=== PATIENT | male | born 1980 | race African-American/Black ===

== ENCOUNTER 2017-06-12 19:35 | Observation (INO) ==
[2017-06-12] MEDS ORDERED: methylPREDNISolone SOD SUC 125 MG/2 ML VIAL IV STA (20:50)
[2017-06-12] MEDS ORDERED: hydrALAZINE 20 MG/1 ML VIAL IV STA ×2 (20:50→23:55)
[2017-06-12] MEDS ORDERED: ASPIRIN 325 MG TABLET PO STA (20:50)
[2017-06-12] MEDS ORDERED: cefTRIAXone 1,000 MG in SODIUM CHLORIDE 0.9% 100 ML IV STA (20:50)
[2017-06-12] MEDS ORDERED: MORPHINE 2 MG/1 ML SYRINGE IV STA (20:50)
[2017-06-12] MEDS ORDERED: ONDANSETRON 4 MG/2 ML VIAL IV STA (20:50)
[2017-06-12] MEDS ORDERED: NITROGLYCERIN 2% OINT 1 INCH/GM PACK TOP STA (20:50)
[2017-06-12] MEDS ORDERED: FUROSEMIDE 100 MG/10 ML VIAL IV STA (20:50)
[2017-06-12] MEDS ORDERED: ALBUTEROL 2.5 MG/3 ML NEB RESP TX SCH (21:00)
[2017-06-12 21:05] LABS: Basophils % 0.2 % (0.0-0.8); Eosinophils # 0.1 10*3/uL (0.0-0.87); Eosinophils % 1.2 % (0.00-10.9); Hematocrit 42.7 VOL% (42.0-52.0); Hemoglobin 14.2 GM/DL (14.0-18.0); Immature Granulocytes % 0.3 %; Immature Granulocytes Absolute 0.03 #; Lymphocytes # 2.2 10*3/uL (1.4-4.0); Lymphocytes % 19.3 % (21.2-54.2); Mean Corpuscular HGB Conc 33.3 GM/DL (32-36); Mean Corpuscular Hemoglobin 26 PG (27-34); Mean Corpuscular Volume 77.5 FL (87-102); Mean Platelet Volume 10.2 FL (9.6-12.0); Monocytes % 8.9 % (1.7-12.7); Neutrophils % 70.1 % (38.7-73.9); Platelet Count 202 T/CUMM (130-400); Red Blood Count 5.51 MC/CUMM (3.8-5.5); Red Cell Distribution Width 14.9 % (9.3-17.3); White Blood Count 11.4 T/CUMM (4-12)
--- NOTE | 2017-06-12 21:13 | XRay Report ---
XR chest 1V portable Indication: Shortness of breath. Chest one view: Comparison 11/05/2014. No infiltrates are shown. There is mild interstitial prominence of the lungs accentuated by morbid obesity. Moderate cardiomegaly is present as well. Slight prominence of the hilar regions noted. Impression: Evidence of mild CHF with moderate cardiomegaly, interstitial prominence of the lungs and hilar prominence bilaterally. No focal pneumonia. PROCEDURE INTERPRETED AT [facility] DEPARTMENT OF RADIOLOGY Final Report Signed by: Weston Smith M.D.
[2017-06-12 21:25] LABS: D-Dimer <= 0.5 MG/L FEU; INR 1.1; PT Patient Result 11.4 SECS
[2017-06-12] MEDS ORDERED: NITROGLYCERIN 2% OINT 1 INCH/GM PACK TOP ONE (21:30)
[2017-06-12] MEDS ORDERED: cefTRIAXone 1,000 MG VIAL ONE (21:30)
[2017-06-12] MEDS ORDERED: hydrALAZINE 20 MG/1 ML VIAL ONE (21:30)
[2017-06-12] MEDS ORDERED: FUROSEMIDE 40 MG/4 ML VIAL ONE (21:30)
[2017-06-12] MEDS ORDERED: SODIUM CHLORIDE 0.9% 100 ML IV ONE (21:31)
[2017-06-12] MEDS ORDERED: methylPREDNISolone SOD SUC 125 MG/2 ML VIAL ONE (21:31)
[2017-06-12] MEDS ORDERED: ASPIRIN 325 MG TABLET ONE (21:31)
[2017-06-12] MEDS ORDERED: FUROSEMIDE 20 MG/2 ML VIAL ONE (21:31)
[2017-06-12] MEDS ORDERED: MORPHINE 2 MG/1 ML SYRINGE ONE (21:31)
[2017-06-12] MEDS ORDERED: ONDANSETRON 4 MG/2 ML VIAL ONE (21:31)
[2017-06-12 21:33] LABS: Albumin 3.4 G/DL (3.4-5.0); Bilirubin,Total 0.9 MG/DL (0.2-1.0); Calcium 8.9 MG/DL (8.5-10.1); Magnesium 2.1 MG/DL (1.8-2.4); Osmolality,Calculated 278.7 MOS/KG (273-304); Potassium 3.2 MMOL/L (3.5-5.1); Total Protein 7.9 G/DL (6.4-8.3); Troponin I Only 0.028 NG/ML (0.00-0.045)
[2017-06-12] MEDS ORDERED: POTASSIUM CHLORIDE 20 MEQ TABLET PO STA (22:10)
[2017-06-12] MEDS ORDERED: POTASSIUM CHLORIDE 20 MEQ TABLET PO ONE (22:23)
[2017-06-12] MEDS ORDERED: niCARdipine 25 MG/10 ML VIAL IV ONE (22:32)
[2017-06-12 22:36] LABS: Apearance,Urine CLEAR (Clear); Bilirubin,Urine Negative (Negative); Blood, Urine Negative (Negative); Glucose,Urine (UA) Negative (Negative); Ketones,Urine Negative (Negative); Nitrite,Urine Negative (Negative); Protein,Urine 100 MG/DL; RBC,Urine 1 /HPF (0-4); Squamous Epithelial Cell,Urine Occasional /HPF (0-10); Urine Color Yellow (Yellow); Urine Specific Gravity 1.012 (1.001-1.035); WBC,Urine 1 /HPF (0-6)
[2017-06-12 22:43] LABS: Barbiturates Screen,Urine Negative (Negative); Benzodiazepines Screen,Urine Negative (Negative); Cannabinoid Screen,Urine Negative (Negative); Opiate Screen,Urine Positive (Negative); Phencyclidine Screen,Urine Negative (Negative)
[2017-06-12] MEDS ORDERED: niCARdipine INJ 25 MG in SODIUM CHLORIDE 0.9% 240 ML IV SCH (23:00)
--- NOTE | 2017-06-12 23:07 | Emergency Department Note ---
IRuthann Emily, am scribing for, and in the presence of, Wilian Berry MD 20: 33. Jamal Ayala Charles R, MD, personally performed the services described in this documentation, ascribed by Anna Beavers in my presence, and it is both accurate and complete . Arrival - Arrival Chief Complaint: Upper Respiratory Stated Complaint: Body aches, headache ED Nursing Triage Note: Pt to triage with complaints of congestion body aches and headache. States that symptoms started Friday. States that he thinks he may have had fever but did not check. PT states that he has a productive cough. Denies relief with otc medications. States that he was seen at Dr. Akins and given medication and it is not helping. b/p left arm 234/143 right arm 223/141 Mode of Arrival: Ambulatory Limitations: No Limitations Source: Patient Time Seen by Provider: 06/12/17 20:20 - History of Present Illness HPI Narrative: Pt is a 37 y/o male who came to ED with c/o congestion, body aches, and headache that started Friday. Pt has associated sxs of subjective fever, productive cough green and white frothy in color, and elevated BP, but denies relief with OTC medications. Pt reports he was seen at Dr. Ribera's and given medication that it is not helping. Pt's BP left arm 234/143, right arm 223/ 141 in ED. He admits to taking his second dose today just before coming into ED. Pt denies smoking. PMHx of being treated for CHF in the past. Onset (ago): day(s) Consistency: constant Severity: moderate Severity scale (1-10): 5 Quality: aching Allergies/Adverse Reactions: Allergies Allergy/AdvReac Type Severity Reaction Status Date / Time No Known Allergies Allergy Verified 06/12/17 19:49 Review of System - Review of System 12 point system: reviewed and no additional remarkable complaints except as stated - Review of System Constitutional: Present: fever (subjective), weakness (body aches) Head/Ears/Nose/Throat: Present: nasal drainage (congestion) Respiratory: Present: cough (productive - white frothy and green). Absent: respiratory distress, wheezing Cardiovascular: Absent: chest pain, syncope Gastrointestinal: Absent: abdominal pain, nausea, vomiting Genitourinary male: Absent: hematuria Musculoskeletal: Absent: arm pain, back pain, leg pain, neck pain Skin: Absent: rash Neurological: Present: headache. Absent: confusion, abnormal gait Medical,Surgical,& Family Hx - Medical History Cardio: History of: CHF, Hypertension - Surgical History Surgical History: noncontributory - Family History Family History: noncontributory - Social History Smoking Status: Never smoker Frequency of Alcohol Use: None Type of Drug Use: None Marital Status: Lives With:: Spouse Functional capacity: independent ambulation Exam Vital Signs: Vital Signs Temperature 99.6 F 06/12/17 20:17 Pulse Rate 113 H 06/12/17 21:24 Respiratory Rate 22 06/12/17 21:24 Blood Pressure 234/143 06/12/17 20:17 O2 Sat by Pulse Oximetry 98 06/12/17 21:24 - General General appearance: alert, in no apparent distress, obese - Head Head exam: Present: atraumatic, normocephalic - Eye Eye exam: Present: PERRL, EOMI - ENT ENT exam: Present: mucous membranes moist. Absent: normal oropharynx (erythema throat), mucous membranes dry - Neck Neck exam: Present: full ROM, lymphadenopathy (painful and knotty) - Chest Chest inspection: Present: symmetric chest wall rise - Respiratory Respiratory exam: Present: rales, rhonchi. Absent: accessory muscle use - Cardiovascular Cardiovascular exam: Present: tachycardia, normal heart sounds - Extremities Exam Extremities exam: Present: full ROM, pedal edema (+1). Absent: tenderness - Neurological Exam Neurological exam: Present: alert, oriented X3, CN II-XII intact. Absent: motor sensory deficit - Psychiatric Psychiatric exam: Present: normal affect, normal mood - Skin Skin exam: Present: warm, diaphoresis (clammy). Absent: dry Course - Consultations Consultation #1: Hospitalist will admit patient Time: 23:06 Results - Labs CBC & BMP: 06/12/17 20:38 06/12/17 20:38 Lab Results: I have reviewed the patients labs Labs: Laboratory Tests 06/12/17 06/12/17 06/12/17 20:38 20:38 20:38 WBC 11.4 RBC 5.51 H Hgb 14.2 Hct 42.7 MCV 77.5 L MCH 26 L Plt Count 202 Lymph % (Auto) 19.3 L Neut # (Auto) 8.0 H [place] # (Auto) 1.0 H D-Dimer, Quantitative <= 0.5 Sodium 138 Potassium 3.2 L Chloride 101 Carbon Dioxide 27 Creatinine 1.60 H GFR Calculation 102 Glucose 163 H Troponin I 0.028 Globulin 4.5 H Albumin/Globulin Ratio 0.7 L Laboratory Tests 06/12/17 20:38 B-Natriuretic Peptide 86 Microbiology 06/12/17 21:52 Throat Group A Streptococcus Rapid Screen - Final Negative for Grp A Strep Ag 06/12/17 21:52 Nasal Aspirate Influenza Types A,B Antigen (MARTHA) - Final Negative for Influenza A Ag Negative for Influenza B Ag Laboratory Tests 06/12/17 06/12/17 22:16 22:16 Urine Color Yellow Urine Appearance Clear Urine pH 6.0 Ur Specific [place] 1.012 Urine Protein 100 Urine Blood Negative Urine Nitrate Negative Urine Urobilinogen 2.0 H Urine RBC 1 Urine WBC 1 Ur Squamous Epith Cells Occasional Urine Opiates Screen Positive H - Diagnostic Findings Procedure: Chest x-ray: report reviewed by me (Evidence of mild CHF with moderate cardiomegaly, interstitial prominence of the lungs and hilar prominence bilaterally. No focal PNA.) Critical Care Time Critical Care Time: Yes Total Critical Care Time: 60 Disposition Clinical Impression: Upper respiratory infection, Bronchitis, Viral infection, Acute dyspnea, Morbid obesity, Hypertensive urgency, Congestive heart failure Case discussed with: patient, patient's family Disposition: Still a Patient Condition: Guarded Time of Disposition: 23:06
[2017-06-12] MEDS ORDERED: ONDANSETRON 4 MG/2 ML VIAL IV PRN (23:30)
[2017-06-12] MEDS ORDERED: ACETAMINOPHEN 325 MG TABLET PO PRN (23:30)
[2017-06-12] MEDS ORDERED: hydrALAZINE 20 MG/1 ML VIAL IV PRN (23:52)
--- NOTE | 2017-06-13 00:14 | Hospitalist History & Physical ---
Assessment and Plan - Time spent with patient Time spent with patient: Greater than 30 minutes (1) Hypertensive urgency Status: Acute Assessment and plan: Admit to hospitalist services. Admit to monitored bed. Cardiac diet. Continue home dose of valsartan/hydrochlorothiazide 320-25 mg daily. Continue home dose of Coreg 25 mg daily Continue home dose hydralazine 50 mg twice daily Continue home dose Lasix 80 mg twice daily Hydralazine 10 mg IV as needed for systolic blood pressure greater than 180 or diastolic blood pressure greater than 100. Current Visit: Yes (2) Upper respiratory infection Status: Acute Assessment and plan: Rocephin 1000 mg IV every 24 hours. Current Visit: Yes (3) Hypokalemia Status: Acute Assessment and plan: Likely due to chronic Lasix use. Potassium chloride 20 mEq p.o. daily. Recheck BMP in a.m. Current Visit: Yes (4) Congestive heart failure Status: Chronic Assessment and plan: Continue home medications for high blood pressure as above. Continue home dose of Lasix as above. Recheck BNP in a.m. Daily weight. Strict intake and output. Current Visit: Yes (5) DVT prophylaxis Status: Acute Assessment and plan: No contraindications to pharmacological treatment. Lovenox 40 mg SQ daily. Current Visit: Yes History of Present Illness Chief complaint: Generalized body aches History of present illness: Mr. Bruce is a 37 year old male with a history of HTN and CHF who presented to the ED tonight with complaints of generalized body aches, fever, chills, sore throat, headache and productive cough with green sputum x 5 days. He denies nausea, vomiting, constipation and diarrhea. He states that he went to his doctor yesterday and was prescribed flonase and claritin, but he has had no improvement in symptoms. On presentation to the ED, Mr. Bruce's BP was 234/143. He denies associated symptoms of chest pain, shortness of breath, dizziness or vision changes, and his BNP was 86. 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 Hospitalist services were consulted for further evaluation and treatment, and patient will be admitted to a monitored bed. Allergies Allergy/AdvReac Type Severity Reaction Status Date / Time No Known Allergies Allergy Verified 06/12/17 19:49 Medical,Surgical,& Family Hx - Medical History Cardio: History of: CHF, Hypertension, Valvular Heart Disease No history of: Cardiac Dysrhythmia Neurology: No history of: Cerebrovascular Accident, Seizures HEENT: No history of: Ear Problem, Eye Problem Endocrine: No history of: Diabetes Mellitus (IDDM), Diabetes Mellitus (NIDDM), Thyroid Disorder Rheumatology: No history of;: Rheumatoid Arthritis Respiratory: No history of: Asthma, COPD Renal: No history of: Renal Failure, Renal Problems Genitourinary: No history of: Kidney Stones, Recurring Urinary Tract Infections, Problems Gastrointestinal: No history of: GI Problems Musculoskeletal: No history of: Back/Neck Problems Hematology: No history of: Bleeding Problems, Clotting Problems, Sickle Cell Disease Other: No history of: Cancer - Surgical History Surgical History: noncontributory (Reviewed surgical history with patient, and he has no surgical history.) - Family History Family History: Reports;: Family Hypertension (mother and maternal grandfather) - Social History Smoking Status: Former smoker Have you smoked in the last 12 months: No Frequency of Alcohol Use: None Type of Drug Use: None Marital Status: Single Lives With:: Parent Functional capacity: independent ambulation - Constitutional Constitutional: Present: chills, fever(s), headache(s), malaise - EENT Eyes: Absent: blurry vision, diplopia, loss of vision Ears: Present: ear pain. Absent: decreased hearing, ear discharge Nose, mouth and throat: Present: headache(s), nasal congestion, sore throat - Cardiovascular Cardiovascular: Absent: chest pain at rest, chest pain with activity, dyspnea, edema, orthopnea, palpitations - Respiratory Respiratory: Present: cough. Absent: dyspnea, wheezing - Gastrointestinal Gastrointestinal: Absent: abdominal pain, constipation, diarrhea, nausea, vomiting - Genitourinary Genitourinary: Absent: dysuria, flank pain, urinary frequency - Musculoskeletal Musculoskeletal: Present: myalgias. Absent: arthralgias, back pain, joint swelling, muscle weakness - Neurological Neurological: Absent: dizziness, numbness, paresthesias, syncope - Psychiatric Psychiatric: Absent: anxiety, depression - Endocrine Endocrine: Absent: cold intolerance, polydipsia, polyphagia, polyuria - Hematologic/Lymphatic Hematologic/Lymphatic: Absent: easy bleeding, easy bruising Exam - Constitutional Vitals: Period Temp Pulse Resp BP Sys/Bonds Pulse Ox Last 24 Hr 99.6 F-99.6 F 113-113 18-22 234-234/143-143 95-98 Exam: Constitutional System: Low-grade temp and diaphoretic. Awake alert and oriented 3. No distress. No tremulousness. Head: Normocephalic, atraumatic. Ears, Nose and Throat System: Redness of right auditory canal with normal tympanic membrane; light reflex visible. No epistaxis or discharge. Throat red with tonsillar hypertrophy noted. No exudate noted. Eyes System: Pupils equal, round, and reactive. Extraocular muscles intact. Neck: Supple, without adenopathy, No jugular venous distention. No thyromegaly, neck mass, or prior surgery apparent. Respiratory System: Chest clear to auscultation. No cough noted during exam. Cardiovascular System: Heart with tachycardic rate and regular rhythm. Systolic murmur present. GI System: Abdomen soft, nontender. Normo active bowel sounds present. Musculoskeletal System: limbs with no pedal edema. Full distal pulses. Normal capillary refill. Neurological System: No discernable sensory deficit. No aphasia Psychiatric System: Conversation is rational Results - Labs CBC & BMP: 06/12/17 20:38 06/12/17 20:38 Lab Results: I have reviewed the past 24 hour labs
[2017-06-13 01:04] LABS: Band Neutrophils 3 % (0-10); Eosinophils 2 % (0-10); Lymphocytes 24 % (20-55); Segmented Neutrophils 67 % (50-85)
[2017-06-13 01:12] LABS: Platelet Estimate Normal; Total Cells Counted 100
--- NOTE | 2017-06-13 02:20 | EKG Report ---
Stationary ECG Study [facility] ER Test Date: 06/12/2017 9:51:46 PM Pat Name: SHERIF PELAYO Department: Room: 270 Gender: M [employer]: : 1980 Requested by: Wilian Arnold Order Number: [id number] Reading MD: LYDIA MARINELLI Intervals [place]ylie Rate: 108 P: 78 NE: 162 QRS: -53 QRSD: 114 T: 84 QT: 363 QTc: 426 Interpretive Statements SINUS TACHYCARDIA PATTERN CONSISTENT WITH PULMONARY DISEASE LEFT ANTERIOR FASCICULAR BLOCK NONSPECIFIC T-WAVE ABNORMALITY BIATRIAL ABNORMALITY Electronically Signed On 06-13-17 17:11:59 CDT by LYDIA MARINELLI [email or web address]
[2017-06-13] MEDS ORDERED: hydrALAZINE 20 MG/1 ML VIAL IV PRN (04:29)
[2017-06-13 05:31] LABS: Osmolality,Calculated 282.7 MOS/KG (273-304); Potassium 3.7 MMOL/L (3.5-5.1)
--- NOTE | 2017-06-13 07:06 | CT Report ---
History is headache and hypertensive urgency Lateral ventricles are normal in size Mild patchy white matter low densities present without acute intracranial hemorrhage or mass effects seen No acute cortical stroke identified Mild mucosal thickening in the paranasal sinuses noted Impression: Mild patchy nonspecific white matter low densities can't be associated with sequelae of microvascular disease, hypertension, vasculitides or demyelinating disorder. Clinical correlation requested The CT exam was performed using one or more of the following dose reduction techniques: Automated exposure control, adjustment of the mA and/or kV according to patient size, or use of iterative reconstruction technique. PROCEDURE INTERPRETED AT [facility] DEPARTMENT OF RADIOLOGY Final Report Signed by: Dr. Joya Garcia
[2017-06-13] MEDS: ENOXAPARIN 40 MG/0.4 ML SYRINGE SUBCUT SCH ×2 (08:39→08:41)
[2017-06-13] MEDS: POTASSIUM CHLORIDE 20 MEQ TABLET PO SCH (08:42)
[2017-06-13] MEDS: FUROSEMIDE 80 MG TABLET PO SCH ×2 (08:42→16:58)
[2017-06-13] MEDS: VALSARTAN/HCTZ 160-12.5 MG TABLET PO SCH (08:42)
[2017-06-13] MEDS: CARVEDILOL 25 MG TABLET PO SCH ×2 (08:43→20:23)
--- NOTE | 2017-06-13 13:55 | Hospitalist Progress Note ---
Assessment and Plan (1) Hypertensive urgency Status: Acute Assessment and plan: Pt's blood pressure on admission 234/143. Pt's blood pressure has improved. But he is still elevated. Will increase dosage of hydralazine and monitor. Current Visit: Yes (2) Hypokalemia Status: Resolved Assessment and plan: K 3.7 today. Will continue to monitor. Current Visit: Yes (3) Morbid obesity Status: Acute Current Visit: Yes Hospitalist: Subjective Interval history: Pt. seen and examined with family present at the bedside. No issues noted overnight. No apparent distress noted. Pt. reports congestion and aches have resolved. We are going to continue current plan of care for patient. Pt. continues to be hypertensive. Increase hydralazine and monitor. Exam - Constitutional Vitals: Period Temp Pulse Resp BP Sys/Bonds Pulse Ox Last 24 Hr 96.9 F-99.6 F 96-113 16-22 137-234/72-143 95-98 General appearance: no acute distress, morbidly obese - Head Head exam: Present: normal inspection, normocephalic - Eye Eye exam: Present: EOMI. Absent: scleral icterus Pupils: Present: CARMEN - Respiratory Respiratory exam: Present: clear to auscultation bilaterally. Absent: wheezes - Cardiovascular Cardiovascular exam: Present: regular rate and rhythm - GI/Abdominal GI/Abdominal exam: Present: normal bowel sounds, soft. Absent: tenderness - Extremities Exam Extremities exam: Present: normal capillary refill, full ROM. Absent: edema - Neurological Exam Neurological exam: Present: alert, oriented X3 - Psychiatric Psychiatric exam: Present: normal affect, normal mood - Skin Skin exam: Present: normal color, warm, dry Results - Labs CBC & BMP: 06/12/17 20:38 06/13/17 04:09 Lab Results: I have reviewed the past 24 hour labs
[2017-06-13] MEDS: amLODIPine 10 MG TABLET PO SCH (15:33)
[2017-06-13] MEDS ORDERED: cefTRIAXone 1,000 MG in SODIUM CHLORIDE 0.9% 100 ML IV SCH (21:00)
[2017-06-14 05:08] LABS: Calcium 9.3 MG/DL (8.5-10.1); Magnesium 2.6 MG/DL (1.8-2.4); Osmolality,Calculated 286.5 MOS/KG (273-304)
[2017-06-14] MEDS: ENOXAPARIN 40 MG/0.4 ML SYRINGE SUBCUT SCH (08:04)
[2017-06-14] MEDS: CARVEDILOL 25 MG TABLET PO SCH (08:05)
[2017-06-14] MEDS: FUROSEMIDE 80 MG TABLET PO SCH (08:05)
[2017-06-14] MEDS: POTASSIUM CHLORIDE 20 MEQ TABLET PO SCH (08:05)
[2017-06-14] MEDS: VALSARTAN/HCTZ 160-12.5 MG TABLET PO SCH (08:06)
[2017-06-14] MEDS: amLODIPine 10 MG TABLET PO SCH (08:06)
--- NOTE | 2017-06-14 08:25 | Discharge Summary ---
Hospital Course - Hospital Course Hospital Course: This is a 37 year old gentleman with moderate to severe essential hypertension. The patient arrived to the hospital with hypertensive emergency and was treated with oral medications and IV antihypertensive medicine on the telemetry meier. Blood pressure is reasonably controlled and the patient is now ready for discharge home to continue follow-up of blood pressure and titration of medications as an outpatient. The patient's initial symptoms were shortness of breath and chest pressure which have now resolved completely. On the date of discharge, chest is clear, abdomen soft and heart has regular rate and rhythm. Patient medications were reconciled upon admission, and again at the time of discharge. The patient was screened for tobacco use and found to be a occasional smoker. The patient was given 4 minutes of tobacco avoidance education. The patient's medical decsion maker is themself, and when asked, they asked to be Full code. Discharge Time was 32 minutes, including final examination, evaluation and planning, education, reconciliation of medications, writing prescriptions, coordinating care with manager of case, and preparing discharge documentation. - Time spent with patient Time with patient DS: Greater than 30 minutes Diagnosis - Discharge Diagnosis (1) Hypertensive urgency Status: Resolved (2) Essential hypertension Status: Chronic Discharge Plan - Discharge Data Disposition: Disch To Home/Self Care Condition at Discharge: Stable Discharge Diet: regular diet Activity: resume usual activities as tolerated - Discharge Medications New amLODIPine [Norvasc] 10 mg PO DAILY #60 tablet Continue Loratadine Tab [Claritin Tab] 10 mg PO DAILY Fluticasone Propionate [Fluticasone 50 mcg Nasal [place]] 50 mcg BOTH NARES DAILY Carvedilol 25 mg PO BID #100 hydrALAZINE TAB [Apresoline Tab] 50 mg PO BID #100 Valsartan/Hydrochlorothiazide [Diovan Hct 320-25 mg Tablet] 320 mg PO DAILY # 60 Furosemide Tab [Lasix Tab] 80 mg PO BID #100 - Follow Up or Referral Follow Up: Your,PCP [Other] - Forms/Instructions Exam - Constitutional Vitals: Period Temp Pulse Resp BP Sys/Bonds Pulse Ox Last 24 Hr 97.4 F-98.9 F 78-110 20-20 134-201/65-117 92-98 Discharge Results Procedures and tests throughout hospitalization: Pending Orders 06/12/17 21:52 Quick Strep Panel Stat 06/12/17 22:00 Blood Culture Stat Labs on day of discharge: Labs from last 24 hours 06/14/17 03:01 Sodium 139 Potassium 4.0 Chloride 102 Carbon Dioxide 28 Anion Gap 13.0 BUN 32 H D Creatinine 1.60 H GFR Calculation 107 BUN/Creatinine Ratio 20.00 Glucose 160 H Calculated Osmolality 286.5 Calcium 9.3 Magnesium 2.6 H Preliminary micro results at discharge 06/12/17 22:00 Blood Culture - Preliminary Blood No growth at 1 day 06/12/17 21:52 Blood Culture - Preliminary Blood No growth at 1 day 06/12/17 21:52 Quick Strep Confirmation Culture - Preliminary Throat No Group A Streptococcus isolated. DS: Provider Date of admission: 06/12/17 23:30 Primary care physician: . No PCP Attending physician on admission: Luda Evans NP Discharging clinician: Lionel Orourke MD
[2017-06-14 08:55] VITALS: BP 159/83
== END 2017-06-14 10:13 | disposition home or self-care (01) ==
LOC: N.ED 19:35 → N.EDINP 19:35 → SUATTDRO 23:30 → N.TELES 06-13 00:13
PROVIDERS: ADMIT Nurse Practitioner Family; ATTEND Internal Medicine

== ENCOUNTER 2019-02-21 23:50 | Observation (INO) ==
[2019-02-22 00:19] LABS: Basophils % 0.3 % (0.0-0.8); Eosinophils # 0.1 10*3/uL (0.0-0.87); Hematocrit 47.5 VOL% (42.0-52.0); Hemoglobin 14.7 GM/DL (14.0-18.0); Immature Granulocytes % 0.5 %; Immature Granulocytes Absolute 0.06 #; Lymphocytes # 3.6 10*3/uL (1.4-4.0); Lymphocytes % 28.6 % (21.2-54.2); Mean Corpuscular HGB Conc 30.9 GM/DL (32-36); Mean Corpuscular Volume 83.9 FL (87-102); Mean Platelet Volume 9.9 FL (9.6-12.0); Monocytes % 6.4 % (1.7-12.7); Neutrophils % 63.2 % (38.7-73.9); Platelet Count 245 T/CUMM (130-400); Red Blood Count 5.66 MC/CUMM (3.8-5.5); Red Cell Distribution Width 16.7 % (9.3-17.3); White Blood Count 12.7 T/CUMM (4-12)
[2019-02-22 00:24] LABS: PT Patient Result 10.5 SECS; Partial Thromboplastin Time 27.3 SECS (0-40)
[2019-02-22 00:33] LABS: Albumin 3.5 G/DL (3.4-5.0); Bilirubin,Total 0.6 MG/DL (0.2-1.0); Calcium 8.9 MG/DL (8.5-10.1); Osmolality,Calculated 278.7 MOS/KG (273-304); Total Protein 8.4 G/DL (6.4-8.3)
[2019-02-22] MEDS ORDERED: ASPIRIN 325 MG TABLET PO STA (01:06)
[2019-02-22] MEDS ORDERED: NITROGLYCERIN SL 0.4 MG TABLET SL PRN ×2 (01:06→02:53)
[2019-02-22] MEDS ORDERED: ACETAMINOPHEN 325 MG TABLET PO PRN (02:33)
[2019-02-22] MEDS ORDERED: MORPHINE 4 MG/1 ML VIAL IV PRN (02:33)
[2019-02-22] MEDS ORDERED: BISACODYL 5 MG TABLET PO PRN (02:33)
[2019-02-22] MEDS ORDERED: ONDANSETRON 4 MG/2 ML VIAL IV PRN (02:33)
[2019-02-22] MEDS ORDERED: MAGNESIUM SULF RIDER 2 GM in PREMIX 1 EACH IV PRN (02:53)
[2019-02-22] MEDS ORDERED: NICOTINE 21 MG/24 HR PATCH TRANSDERM PRN (02:53)
[2019-02-22] MEDS ORDERED: hydrALAZINE 20 MG/1 ML VIAL IV PRN (02:53)
[2019-02-22] MEDS ORDERED: MAGNESIUM SULF RIDER 4 GM in PREMIX 1 EACH IV PRN (02:53)
[2019-02-22] MEDS: POTASSIUM CHLORIDE 20 MEQ TABLET PO PRN ×2 (08:29→14:26)
[2019-02-22] MEDS: PANTOPRAZOLE 40 MG TABLET PO SCH (08:30)
[2019-02-22] MEDS ORDERED: amLODIPine 10 MG TABLET PO SCH (09:00)
[2019-02-22] MEDS ORDERED: ASPIRIN 325 MG TABLET PO SCH (09:00)
[2019-02-22] MEDS ORDERED: METOPROLOL SUCCINATE XL 25 MG TABLET PO SCH (10:00)
[2019-02-22 10:23] LABS: VLDL CHOLESTEROL 31.8 MG/DL
[2019-02-22] MEDS: ASPIRIN EC 81 MG TABLET PO SCH (10:47)
[2019-02-22 12:24] LABS: Troponin I 0.097 NG/ML (0.00-0.045)
[2019-02-22] MEDS ORDERED: FUROSEMIDE 40 MG/4 ML VIAL IV ONE (13:11)
[2019-02-22] MEDS: ISOSORBIDE DINITRATE 20 MG TABLET PO SCH ×2 (14:26→20:54)
[2019-02-22] MEDS: hydrALAZINE 25 MG TABLET PO SCH ×2 (14:26→20:53)
[2019-02-22 19:49] LABS: Barbiturates Screen,Urine Negative (Negative); Benzodiazepines Screen,Urine Negative (Negative); Cannabinoid Screen,Urine Negative (Negative); Opiate Screen,Urine Negative (Negative); Phencyclidine Screen,Urine Negative (Negative)
[2019-02-22] MEDS: CARVEDILOL 3.125 MG TABLET PO SCH (20:54)
[2019-02-23 06:54] LABS: Basophils % 0.3 % (0.0-0.8); Eosinophils # 0.2 10*3/uL (0.0-0.87); Eosinophils % 1.6 % (0.00-10.9); Hematocrit 42.5 VOL% (42.0-52.0); Hemoglobin 13.3 GM/DL (14.0-18.0); Immature Granulocytes % 0.2 %; Immature Granulocytes Absolute 0.02 #; Lymphocytes # 3.2 10*3/uL (1.4-4.0); Lymphocytes % 34.5 % (21.2-54.2); Mean Corpuscular HGB Conc 31.3 GM/DL (32-36); Mean Corpuscular Volume 84.3 FL (87-102); Mean Platelet Volume 9.9 FL (9.6-12.0); Monocytes % 5.8 % (1.7-12.7); Neutrophils % 57.6 % (38.7-73.9); Platelet Count 213 T/CUMM (130-400); Red Blood Count 5.04 MC/CUMM (3.8-5.5); Red Cell Distribution Width 16.1 % (9.3-17.3); White Blood Count 9.1 T/CUMM (4-12)
[2019-02-23 07:55] LABS: Calcium 8.9 MG/DL (8.5-10.1); Osmolality,Calculated 278.7 MOS/KG (273-304)
[2019-02-23] MEDS ORDERED: diphenhydrAMINE CAP 25 MG CAPSULE PO ONE (08:30)
[2019-02-23] MEDS ORDERED: DIAZEPAM 5 MG TABLET PO ONE ×2 (08:30→10:30)
[2019-02-23] MEDS: ISOSORBIDE DINITRATE 20 MG TABLET PO SCH ×3 (08:46→21:09)
[2019-02-23] MEDS: ASPIRIN EC 81 MG TABLET PO SCH (08:46)
[2019-02-23] MEDS: PANTOPRAZOLE 40 MG TABLET PO SCH (08:46)
[2019-02-23] MEDS: CARVEDILOL 3.125 MG TABLET PO SCH ×2 (08:46→21:08)
[2019-02-23] MEDS: hydrALAZINE 25 MG TABLET PO SCH ×3 (08:46→21:09)
[2019-02-23] MEDS ORDERED: diphenhydrAMINE CAP 50 MG CAPSULE PO ONE (10:30)
[2019-02-23] MEDS: ROSUVASTATIN 20 MG TABLET PO SCH (16:11)
[2019-02-23] MEDS ORDERED: MIDAZOLAM 2 MG/2 ML VIAL ONE (16:30)
[2019-02-23] MEDS ORDERED: LIDOCAINE 1% 20 ML VIAL ONE ×2 (16:30→16:48)
[2019-02-23] MEDS ORDERED: HYDROmorphone 2 MG/1 ML VIAL ONE (16:30)
[2019-02-24 04:39] LABS: Basophils % 0.4 % (0.0-0.8); Eosinophils # 0.2 10*3/uL (0.0-0.87); Eosinophils % 1.6 % (0.00-10.9); Hematocrit 41.2 VOL% (42.0-52.0); Hemoglobin 12.5 GM/DL (14.0-18.0); Immature Granulocytes % 0.3 %; Immature Granulocytes Absolute 0.03 #; Lymphocytes % 29.9 % (21.2-54.2); Mean Corpuscular HGB Conc 30.3 GM/DL (32-36); Mean Corpuscular Volume 85.5 FL (87-102); Mean Platelet Volume 10.1 FL (9.6-12.0); Monocytes % 6.6 % (1.7-12.7); Neutrophils % 61.2 % (38.7-73.9); Platelet Count 210 T/CUMM (130-400); Red Blood Count 4.82 MC/CUMM (3.8-5.5); Red Cell Distribution Width 15.9 % (9.3-17.3); White Blood Count 9.9 T/CUMM (4-12)
[2019-02-24 04:59] LABS: Calcium 8.7 MG/DL (8.5-10.1); Osmolality,Calculated 281.5 MOS/KG (273-304)
[2019-02-24] MEDS ORDERED: FUROSEMIDE 40 MG/4 ML VIAL IV SCH (09:00)
[2019-02-24] MEDS: ROSUVASTATIN 20 MG TABLET PO SCH (09:06)
[2019-02-24] MEDS: ASPIRIN EC 81 MG TABLET PO SCH (09:06)
[2019-02-24] MEDS: hydrALAZINE 25 MG TABLET PO SCH ×2 (09:06→14:52)
[2019-02-24] MEDS: ISOSORBIDE DINITRATE 20 MG TABLET PO SCH ×2 (09:06→14:52)
[2019-02-24] MEDS: PANTOPRAZOLE 40 MG TABLET PO SCH (09:06)
[2019-02-24] MEDS: CARVEDILOL 3.125 MG TABLET PO SCH (09:06)
[2019-02-24] MEDS: FUROSEMIDE 40 MG/4 ML VIAL IV SCH ×2 (09:06→15:18)
[2019-02-24 17:12] VITALS: BP 134/88
== END 2019-02-24 16:47 | disposition home or self-care (01) ==
LOC: N.EDINP 23:50 → N.ED 23:50 → N.TELEN 02-22 03:37
PROVIDERS: ADMIT Internal Medicine; ATTEND Internal Medicine

== ENCOUNTER 2020-05-31 15:00 | Inpatient (IN) ==
[2020-05-31] MEDS ORDERED: DILTIAZEM 50 MG/10 ML VIAL IV STA (15:54)
[2020-05-31] MEDS ORDERED: ASPIRIN 325 MG TABLET PO STA (15:54)
[2020-05-31] MEDS ORDERED: FUROSEMIDE 40 MG/4 ML VIAL IV STA (15:54)
[2020-05-31 16:06] LABS: Basophils % 0.4 % (0.0-0.8); Eosinophils # 0.1 10*3/uL (0.0-0.87); Eosinophils % 0.9 % (0.00-10.9); Hematocrit 53.2 VOL% (42.0-52.0); Hemoglobin 16.7 GM/DL (14.0-18.0); Immature Granulocytes % 0.2 %; Immature Granulocytes Absolute 0.02 #; Lymphocytes # 2.1 10*3/uL (1.4-4.0); Lymphocytes % 21.4 % (21.2-54.2); Mean Corpuscular HGB Conc 31.4 GM/DL (32-36); Mean Corpuscular Volume 88.2 FL (87-102); Mean Platelet Volume 9.7 FL (9.6-12.0); Monocytes % 5.9 % (1.7-12.7); NRBC # 0.02 10*3/uL; Neutrophils % 71.2 % (38.7-73.9); Platelet Count 243 T/CUMM (130-400); Red Blood Count 6.03 MC/CUMM (3.8-5.5); Red Cell Distribution Width 17.6 % (9.3-17.3); White Blood Count 9.7 T/CUMM (4-12)
[2020-05-31] MEDS: dilTIAZem Drip 125 MG/125 ML PREMIX IV SCH (16:13)
[2020-05-31 16:15] LABS: INR 1.1; PT Patient Result 11.8 SECS (9.8-11.9)
[2020-05-31 16:34] LABS: Albumin 3.4 G/DL (3.4-5.0); Bilirubin,Total 1.3 MG/DL (0.2-1.0); Osmolality,Calculated 281.5 MOS/KG (273-304); Total Protein 7.7 G/DL (6.4-8.3)
[2020-05-31] MEDS ORDERED: ZALEPLON 5 MG CAPSULE PO PRN (16:35)
[2020-05-31] MEDS ORDERED: hydrALAZINE 20 MG/1 ML VIAL IV PRN (16:35)
[2020-05-31] MEDS ORDERED: ONDANSETRON 4 MG/2 ML VIAL IV PRN (16:35)
[2020-05-31] MEDS ORDERED: MAGNESIUM SULF RIDER 4 GM in PREMIX 1 EACH IV PRN (16:35)
[2020-05-31] MEDS ORDERED: ACETAMINOPHEN 325 MG TABLET PO PRN (16:35)
[2020-05-31] MEDS ORDERED: MAGNESIUM SULF RIDER 2 GM in PREMIX 1 EACH IV PRN (16:35)
[2020-05-31] MEDS ORDERED: diphenhydrAMINE CAP 25 MG CAPSULE PO PRN (16:35)
[2020-05-31] MEDS ORDERED: SIMETHICONE CHEW 125 MG TABLET PO PRN (16:35)
[2020-05-31] MEDS ORDERED: ALUMINUM/MAGNES/SIMETH MAX STR 30 ML UDCUP PO PRN (16:35)
[2020-05-31] MEDS ORDERED: guaiFENesin/DM ER 600-30 MG TABLET PO PRN (16:35)
[2020-05-31] MEDS ORDERED: POTASSIUM CHLORIDE 20 MEQ TABLET PO PRN (16:35)
[2020-05-31] MEDS ORDERED: ENOXAPARIN 150 MG/ML SYRINGE SUBCUT ONE (16:45)
[2020-05-31] MEDS ORDERED: METOPROLOL TARTRATE 5 MG/5 ML VIAL IV STA (17:09)
[2020-05-31] MEDS ORDERED: ENOXAPARIN 100 MG/ML SYRINGE SUBCUT ONE (17:23)
[2020-05-31] MEDS: SACUBITRIL/VALSARTAN 49-51 MG TABLET PO SCH (21:50)
[2020-05-31] MEDS: ASCORBIC ACID 500 MG TABLET PO SCH (21:50)
[2020-05-31] MEDS: POTASSIUM CHLORIDE 20 MEQ TABLET PO SCH (21:51)
[2020-05-31] MEDS: hydrALAZINE 25 MG TABLET PO SCH (21:51)
[2020-05-31] MEDS: FUROSEMIDE 80 MG TABLET PO SCH (21:51)
[2020-05-31] MEDS: APIXABAN 5 MG TABLET PO SCH (21:51)
[2020-05-31] MEDS: carvediloL 25 MG TABLET PO SCH (21:51)
[2020-05-31] MEDS: ISOSORBIDE DINITRATE 20 MG TABLET PO SCH (21:53)
[2020-05-31] MEDS: INSULIN REGULAR 100 UNIT/ML SUBCUT SCH (21:57)
[2020-06-01] MEDS: dilTIAZem Drip 125 MG/125 ML PREMIX IV SCH ×2 (00:42→13:14)
[2020-06-01 05:55] LABS: Basophils % 0.3 % (0.0-0.8); Eosinophils # 0.1 10*3/uL (0.0-0.87); Eosinophils % 1.2 % (0.00-10.9); Hematocrit 46.2 VOL% (42.0-52.0); Hemoglobin 14.8 GM/DL (14.0-18.0); Immature Granulocytes % 0.2 %; Immature Granulocytes Absolute 0.02 #; Lymphocytes # 3.2 10*3/uL (1.4-4.0); Lymphocytes % 32.8 % (21.2-54.2); Mean Corpuscular Volume 86.7 FL (87-102); Mean Platelet Volume 10.7 FL (9.6-12.0); Monocytes % 6.1 % (1.7-12.7); Neutrophils % 59.4 % (38.7-73.9); Platelet Count 211 T/CUMM (130-400); Red Blood Count 5.33 MC/CUMM (3.8-5.5); Red Cell Distribution Width 16.4 % (9.3-17.3); White Blood Count 9.6 T/CUMM (4-12)
[2020-06-01 06:10] LABS: Calcium 8.8 MG/DL (8.5-10.1); Osmolality,Calculated 283.3 MOS/KG (273-304)
[2020-06-01 07:52] LABS: Barbiturates Screen,Urine Negative (Negative); Benzodiazepines Screen,Urine Negative (Negative); Cannabinoid Screen,Urine Negative (Negative); Opiate Screen,Urine Negative (Negative); Phencyclidine Screen,Urine Negative (Negative)
[2020-06-01] MEDS ORDERED: FUROSEMIDE 40 MG/4 ML VIAL IV SCH (08:23)
[2020-06-01] MEDS ORDERED: FUROSEMIDE 40 MG/4 ML VIAL IV ONE (08:26)
[2020-06-01] MEDS ORDERED: POTASSIUM CHLORIDE 20 MEQ TABLET PO ONE (08:27)
[2020-06-01] MEDS: INSULIN REGULAR 100 UNIT/ML SUBCUT SCH ×4 (09:26→21:51)
[2020-06-01] MEDS ORDERED: DIGOXIN 0.125 MG TABLET PO ONE (09:42)
[2020-06-01] MEDS: SACUBITRIL/VALSARTAN 49-51 MG TABLET PO SCH ×2 (10:21→21:50)
[2020-06-01] MEDS: carvediloL 25 MG TABLET PO SCH ×2 (10:21→21:50)
[2020-06-01] MEDS: ISOSORBIDE DINITRATE 20 MG TABLET PO SCH ×3 (10:22→21:51)
[2020-06-01] MEDS: hydrALAZINE 25 MG TABLET PO SCH ×3 (10:22→21:51)
[2020-06-01] MEDS: APIXABAN 5 MG TABLET PO SCH ×2 (10:22→21:51)
[2020-06-01] MEDS: ASCORBIC ACID 500 MG TABLET PO SCH ×2 (11:41→21:50)
[2020-06-01] MEDS ORDERED: AMIODARONE INJ 150 MG in DEXTROSE 5% 100 ML IV ONE (15:35)
[2020-06-01] MEDS ORDERED: AMIODARONE INJ 450 MG in DEXTROSE 5% 241 ML IV SCH (16:00)
[2020-06-01] MEDS: FUROSEMIDE 40 MG/4 ML VIAL IV SCH (16:51)
[2020-06-01] MEDS: POTASSIUM CHLORIDE 20 MEQ TABLET PO SCH (21:50)
[2020-06-02] MEDS: AMIODARONE INJ 450 MG in DEXTROSE 5% 241 ML IV SCH ×2 (00:21→13:37)
[2020-06-02 06:21] LABS: Calcium 8.9 MG/DL (8.5-10.1); Osmolality,Calculated 282.5 MOS/KG (273-304)
[2020-06-02] MEDS: INSULIN REGULAR 100 UNIT/ML SUBCUT SCH ×4 (09:09→20:36)
[2020-06-02] MEDS: ASCORBIC ACID 500 MG TABLET PO SCH ×2 (09:10→20:35)
[2020-06-02] MEDS: carvediloL 25 MG TABLET PO SCH ×2 (09:11→20:34)
[2020-06-02] MEDS: APIXABAN 5 MG TABLET PO SCH ×2 (09:11→20:36)
[2020-06-02] MEDS: hydrALAZINE 25 MG TABLET PO SCH ×3 (09:12→20:36)
[2020-06-02] MEDS: ISOSORBIDE DINITRATE 20 MG TABLET PO SCH ×3 (09:12→20:36)
[2020-06-02] MEDS: FUROSEMIDE 40 MG/4 ML VIAL IV SCH (09:15)
[2020-06-02] MEDS: SACUBITRIL/VALSARTAN 49-51 MG TABLET PO SCH ×2 (10:08→20:37)
[2020-06-02] MEDS: DIGOXIN 0.125 MG TABLET PO SCH (13:48)
[2020-06-02] MEDS: FUROSEMIDE 80 MG TABLET PO SCH (20:35)
[2020-06-02] MEDS: POTASSIUM CHLORIDE 20 MEQ TABLET PO SCH (20:35)
[2020-06-02] MEDS: AMIODARONE 200 MG TABLET PO SCH (20:36)
[2020-06-02] MEDS ORDERED: AMIODARONE 200 MG TABLET PO SCH (21:00)
[2020-06-03] MEDS: AMIODARONE INJ 450 MG in DEXTROSE 5% 241 ML IV SCH ×2 (03:46→20:11)
[2020-06-03 05:22] LABS: Basophils % 0.3 % (0.0-0.8); Eosinophils # 0.1 10*3/uL (0.0-0.87); Eosinophils % 1.2 % (0.00-10.9); Hemoglobin 14.4 GM/DL (14.0-18.0); Immature Granulocytes % 0.2 %; Immature Granulocytes Absolute 0.02 #; Lymphocytes # 2.7 10*3/uL (1.4-4.0); Lymphocytes % 30.4 % (21.2-54.2); Mean Corpuscular HGB Conc 31.3 GM/DL (32-36); Mean Platelet Volume 10.4 FL (9.6-12.0); Monocytes % 6.7 % (1.7-12.7); NRBC # 0.02 10*3/uL; Neutrophils % 61.2 % (38.7-73.9); Platelet Count 195 T/CUMM (130-400); Red Blood Count 5.17 MC/CUMM (3.8-5.5); Red Cell Distribution Width 16.5 % (9.3-17.3); White Blood Count 8.9 T/CUMM (4-12)
[2020-06-03 05:52] LABS: Calcium 8.5 MG/DL (8.5-10.1); Osmolality,Calculated 283.4 MOS/KG (273-304)
[2020-06-03] MEDS: INSULIN REGULAR 100 UNIT/ML SUBCUT SCH ×4 (09:16→20:48)
[2020-06-03] MEDS: ASCORBIC ACID 500 MG TABLET PO SCH ×2 (09:17→21:22)
[2020-06-03] MEDS: carvediloL 25 MG TABLET PO SCH ×2 (09:17→21:22)
[2020-06-03] MEDS: SACUBITRIL/VALSARTAN 49-51 MG TABLET PO SCH ×2 (09:17→21:22)
[2020-06-03] MEDS: ISOSORBIDE DINITRATE 20 MG TABLET PO SCH ×3 (09:18→21:23)
[2020-06-03] MEDS: hydrALAZINE 25 MG TABLET PO SCH ×3 (09:18→21:23)
[2020-06-03] MEDS: APIXABAN 5 MG TABLET PO SCH ×2 (09:18→21:23)
[2020-06-03] MEDS: FUROSEMIDE 80 MG TABLET PO SCH ×2 (09:18→21:22)
[2020-06-03] MEDS: AMIODARONE 200 MG TABLET PO SCH (09:18)
[2020-06-03] MEDS ORDERED: POTASSIUM CHLORIDE 20 MEQ TABLET PO ONE (12:49)
[2020-06-03] MEDS ORDERED: AMIODARONE INJ 450 MG in DEXTROSE 5% 241 ML IV SCH (13:00)
[2020-06-03] MEDS: DIGOXIN 0.125 MG TABLET PO SCH (13:28)
[2020-06-03] MEDS: POTASSIUM CHLORIDE 20 MEQ TABLET PO SCH (21:23)
[2020-06-04 07:00] LABS: Basophils % 0.3 % (0.0-0.8); Eosinophils # 0.1 10*3/uL (0.0-0.87); Eosinophils % 1.6 % (0.00-10.9); Hematocrit 45.2 VOL% (42.0-52.0); Hemoglobin 14.5 GM/DL (14.0-18.0); Immature Granulocytes % 0.2 %; Immature Granulocytes Absolute 0.02 #; Lymphocytes # 2.4 10*3/uL (1.4-4.0); Lymphocytes % 27.5 % (21.2-54.2); Mean Corpuscular HGB Conc 32.1 GM/DL (32-36); Mean Corpuscular Volume 87.4 FL (87-102); Mean Platelet Volume 10.4 FL (9.6-12.0); Monocytes % 7.1 % (1.7-12.7); Neutrophils % 63.3 % (38.7-73.9); Platelet Count 202 T/CUMM (130-400); Red Blood Count 5.17 MC/CUMM (3.8-5.5); Red Cell Distribution Width 17.3 % (9.3-17.3); White Blood Count 8.7 T/CUMM (4-12)
[2020-06-04 07:18] LABS: Calcium 8.5 MG/DL (8.5-10.1); Osmolality,Calculated 282.5 MOS/KG (273-304)
[2020-06-04] MEDS: SACUBITRIL/VALSARTAN 49-51 MG TABLET PO SCH (09:03)
[2020-06-04] MEDS: FUROSEMIDE 80 MG TABLET PO SCH (09:03)
[2020-06-04] MEDS: ASCORBIC ACID 500 MG TABLET PO SCH (09:03)
[2020-06-04] MEDS: carvediloL 25 MG TABLET PO SCH (09:04)
[2020-06-04] MEDS: ISOSORBIDE DINITRATE 20 MG TABLET PO SCH (09:04)
[2020-06-04] MEDS: hydrALAZINE 25 MG TABLET PO SCH (09:04)
[2020-06-04] MEDS: INSULIN REGULAR 100 UNIT/ML SUBCUT SCH ×2 (09:04→14:17)
[2020-06-04] MEDS: APIXABAN 5 MG TABLET PO SCH (09:14)
[2020-06-04] MEDS: AMIODARONE INJ 450 MG in DEXTROSE 5% 241 ML IV SCH (10:23)
[2020-06-04 12:55] VITALS: BP 112/77
[2020-06-04] MEDS: DIGOXIN 0.125 MG TABLET PO SCH (15:01)
== END 2020-06-04 15:38 | disposition home or self-care (01) | DRG 308 ==
LOC: N.ED 15:00 → N.EDINP 15:00 → N.TELES 17:24
PROVIDERS: ADMIT Internal Medicine Cardiovascular Disease; ATTEND Internal Medicine Cardiovascular Disease

== ENCOUNTER 2021-06-03 17:28 | Inpatient (IN) ==
[2021-06-03] MEDS ORDERED: SODIUM CHLORIDE 0.9% 1,000 ML IV STA (23:59)
[2021-06-04] MEDS ORDERED: ACETAMINOPHEN 500 MG TABLET PO STA
[2021-06-04 00:21] LABS: ABG Base Excess 1.1 MMOL/L (-2.5-2.5); ABG HCO3 23.9 MMOL/L (20-26); ABG Oxygen Saturation 93.9 % (95-100); ABG PCO2 33.4 MM HG (35-48); ABG PH 7.473 (7.35-7.45); ABG PO2 67.7 MM HG (80-95)
[2021-06-04 01:04] LABS: Albumin 3.1 G/DL (3.4-5.0); Bilirubin,Total 0.8 MG/DL (0.20-1.00); Calcium 8.3 MG/DL (8.5-10.1); Osmolality,Calculated 279.5 MOS/KG (273-304); Potassium 3.3 MMOL/L (3.5-5.1); Total Protein 7.4 G/DL (6.4-8.2)
[2021-06-04 01:20] LABS: Basophils % 0.2 % (0.0-0.8); Eosinophils % 0.7 % (0.00-10.9); Hematocrit 48.2 VOL% (42.0-52.0); Hemoglobin 15.4 GM/DL (14.0-18.0); Immature Granulocytes % 0.5 %; Immature Granulocytes Absolute 0.03 #; Lymphocytes # 1.2 10*3/uL (1.4-4.0); Lymphocytes % 20.5 % (21.2-54.2); Mean Corpuscular Volume 87.5 FL (87-102); Mean Platelet Volume 10.9 FL (9.6-12.0); Monocytes % 12.6 % (1.7-12.7); Neutrophils % 65.5 % (38.7-73.9); Platelet Count 142 T/CUMM (130-400); Red Blood Count 5.51 MC/CUMM (3.8-5.5); Red Cell Distribution Width 14.1 % (9.3-17.3); White Blood Count 5.8 T/CUMM (4-12)
[2021-06-04] MEDS ORDERED: AZITHROMYCIN INJ 500 MG in SODIUM CHLORIDE 0.9% 250 ML IV STA (01:33)
[2021-06-04] MEDS ORDERED: DEXAMETHASONE 4 MG/1 ML VIAL IV STA (01:33)
[2021-06-04] MEDS ORDERED: hydrALAZINE 20 MG/1 ML VIAL ONE (01:39)
[2021-06-04] MEDS ORDERED: NICOTINE 21 MG/24 HR PATCH TRANSDERM PRN (02:02)
[2021-06-04] MEDS ORDERED: hydrALAZINE 20 MG/1 ML VIAL IV PRN (02:02)
[2021-06-04] MEDS ORDERED: DEXTROSE 50% 25 GM/50 ML VIAL IV PRN (02:02)
[2021-06-04] MEDS ORDERED: GLUCAGON 1 MG VIAL IM PRN (02:02)
[2021-06-04] MEDS ORDERED: CALCIUM CARBONATE CHEW 500 MG TABLET PO PRN (02:02)
[2021-06-04] MEDS: cefTRIAXone 1,000 MG in SODIUM CHLORIDE 0.9% 100 ML IV SCH (03:30)
[2021-06-04] MEDS: ENOXAPARIN 40 MG/0.4 ML SYRINGE SUBCUT SCH ×2 (03:30→17:07)
[2021-06-04] MEDS ORDERED: POTASSIUM CHLORIDE 20 MEQ TABLET PO ONE (03:34)
[2021-06-04 04:45] LABS: PT Patient Result 11.6 SECS (10.5-12.0); Partial Thromboplastin Time 27.8 SECS (23.9-33.8)
[2021-06-04] MEDS ORDERED: LABETALOL 20 MG/4 ML SYRINGE IV STA (06:00)
[2021-06-04] MEDS ORDERED: LABETALOL 20 MG/4 ML SYRINGE IV ONE (06:17)
[2021-06-04 07:04] LABS: Bilirubin,Total 0.8 MG/DL (0.20-1.00); Calcium 8.1 MG/DL (8.5-10.1); Osmolality,Calculated 282.4 MOS/KG (273-304); Potassium 3.8 MMOL/L (3.5-5.1); Total Protein 6.6 G/DL (6.4-8.2)
[2021-06-04 07:06] LABS: Ferritin 280.5 ng/ml (26-388)
[2021-06-04] MEDS: INSULIN REGULAR 100 UNIT/ML SUBCUT SCH ×4 (08:20→23:07)
[2021-06-04] MEDS: ZINC GLUCONATE 50 MG TABLET PO SCH (08:45)
[2021-06-04] MEDS: FAMOTIDINE 20 MG TABLET PO SCH ×2 (08:45→23:08)
[2021-06-04] MEDS: ASCORBIC ACID 500 MG TABLET PO SCH ×2 (08:45→23:08)
[2021-06-04] MEDS: ISOSORBIDE DINITRATE 20 MG TABLET PO SCH ×3 (08:45→23:08)
[2021-06-04] MEDS: CHOLECALCIFEROL 1,000 UNIT TABLET PO SCH (08:45)
[2021-06-04] MEDS: CETIRIZINE 10 MG TABLET PO SCH (08:45)
[2021-06-04] MEDS: carvediloL 12.5 MG TABLET PO SCH ×2 (08:45→23:07)
[2021-06-04] MEDS: DEXAMETHASONE 4 MG/1 ML VIAL IV SCH (08:50)
[2021-06-04] MEDS: MORPHINE 2 MG/1 ML SYRINGE IV PRN ×2 (08:51→17:15)
[2021-06-04] MEDS: ONDANSETRON 4 MG/2 ML VIAL IV PRN ×2 (08:51→17:15)
[2021-06-04] MEDS ORDERED: REMDESIVIR 200 MG in SODIUM CHLORIDE 0.9% 210 ML IV ONE (11:00)
[2021-06-04] MEDS: FUROSEMIDE 40 MG TABLET PO SCH ×2 (11:59→23:08)
[2021-06-04] MEDS: MOMETASONE 50 MCG NASAL SPRAY 17 GM BOTTLE BOTH NARES SCH ×2 (14:30→23:08)
[2021-06-04] MEDS: ACETAMINOPHEN 325 MG TABLET PO PRN (23:12)
[2021-06-05] MEDS: cefTRIAXone 1,000 MG in SODIUM CHLORIDE 0.9% 100 ML IV SCH (03:13)
[2021-06-05] MEDS: ENOXAPARIN 40 MG/0.4 ML SYRINGE SUBCUT SCH ×2 (03:13→22:25)
[2021-06-05] MEDS: INSULIN REGULAR 100 UNIT/ML SUBCUT SCH ×4 (10:01→22:25)
[2021-06-05] MEDS: CHOLECALCIFEROL 1,000 UNIT TABLET PO SCH (10:20)
[2021-06-05] MEDS: DEXAMETHASONE 4 MG/1 ML VIAL IV SCH (10:20)
[2021-06-05] MEDS: AZITHROMYCIN 250 MG TABLET PO SCH (10:20)
[2021-06-05] MEDS: MOMETASONE 50 MCG NASAL SPRAY 17 GM BOTTLE BOTH NARES SCH ×2 (10:20→22:25)
[2021-06-05] MEDS: ZINC GLUCONATE 50 MG TABLET PO SCH (10:21)
[2021-06-05] MEDS: ASCORBIC ACID 500 MG TABLET PO SCH ×2 (10:21→22:25)
[2021-06-05] MEDS: carvediloL 12.5 MG TABLET PO SCH ×2 (10:21→22:25)
[2021-06-05] MEDS: CETIRIZINE 10 MG TABLET PO SCH (10:21)
[2021-06-05] MEDS: FAMOTIDINE 20 MG TABLET PO SCH ×2 (10:21→22:25)
[2021-06-05] MEDS: ISOSORBIDE DINITRATE 20 MG TABLET PO SCH ×3 (10:22→22:25)
[2021-06-05] MEDS: REMDESIVIR 100 MG in SODIUM CHLORIDE 0.9% 100 ML IV SCH (10:22)
[2021-06-05] MEDS: FUROSEMIDE 40 MG TABLET PO SCH ×2 (10:22→22:25)
[2021-06-05] MEDS: MELATONIN 3 MG TABLET PO PRN (22:25)
[2021-06-05] MEDS: ACETAMINOPHEN 325 MG TABLET PO PRN (22:25)
[2021-06-06 06:23] LABS: Hematocrit 45.7 VOL% (42.0-52.0); Hemoglobin 14.4 GM/DL (14.0-18.0); Immature Granulocytes % 0.3 %; Immature Granulocytes Absolute 0.02 #; Lymphocytes # 2.2 10*3/uL (1.4-4.0); Lymphocytes % 29.2 % (21.2-54.2); Mean Corpuscular HGB Conc 31.5 GM/DL (32-36); Mean Corpuscular Volume 89.3 FL (87-102); Mean Platelet Volume 11.1 FL (9.6-12.0); Monocytes % 5.7 % (1.7-12.7); Neutrophils % 64.8 % (38.7-73.9); Platelet Count 150 T/CUMM (130-400); Red Blood Count 5.12 MC/CUMM (3.8-5.5); Red Cell Distribution Width 14.6 % (9.3-17.3); White Blood Count 7.6 T/CUMM (4-12)
[2021-06-06 06:38] LABS: Calcium 8.2 MG/DL (8.5-10.1); Osmolality,Calculated 286.3 MOS/KG (273-304); Potassium 3.3 MMOL/L (3.5-5.1)
[2021-06-06 06:54] LABS: Band Neutrophils 20 % (0-10); Lymphocytes 21 % (20-55); Nucleated Red Blood Cells 1 (0-5); Segmented Neutrophils 50 % (50-85); Total Cells Counted 100
[2021-06-06 06:55] LABS: Anisocytosis Slight; Platelet Estimate Normal
[2021-06-06] MEDS: INSULIN REGULAR 100 UNIT/ML SUBCUT SCH ×4 (08:15→21:01)
[2021-06-06] MEDS: ENOXAPARIN 40 MG/0.4 ML SYRINGE SUBCUT SCH ×2 (10:15→21:00)
[2021-06-06] MEDS: DEXAMETHASONE 4 MG/1 ML VIAL IV SCH (10:15)
[2021-06-06] MEDS: ISOSORBIDE DINITRATE 20 MG TABLET PO SCH ×3 (10:16→20:59)
[2021-06-06] MEDS: carvediloL 12.5 MG TABLET PO SCH ×2 (10:16→21:00)
[2021-06-06] MEDS: CETIRIZINE 10 MG TABLET PO SCH (10:16)
[2021-06-06] MEDS: ZINC GLUCONATE 50 MG TABLET PO SCH (10:16)
[2021-06-06] MEDS: FUROSEMIDE 40 MG TABLET PO SCH ×2 (10:16→21:00)
[2021-06-06] MEDS: ASCORBIC ACID 500 MG TABLET PO SCH ×2 (10:16→20:59)
[2021-06-06] MEDS: CHOLECALCIFEROL 1,000 UNIT TABLET PO SCH (10:17)
[2021-06-06] MEDS: AZITHROMYCIN 250 MG TABLET PO SCH (10:17)
[2021-06-06] MEDS: REMDESIVIR 100 MG in SODIUM CHLORIDE 0.9% 100 ML IV SCH (10:17)
[2021-06-06] MEDS: FAMOTIDINE 20 MG TABLET PO SCH ×2 (12:21→20:59)
[2021-06-06] MEDS: cefTRIAXone 1,000 MG in SODIUM CHLORIDE 0.9% 100 ML IV SCH (12:22)
[2021-06-06] MEDS: MOMETASONE 50 MCG NASAL SPRAY 17 GM BOTTLE BOTH NARES SCH ×2 (12:26→21:09)
[2021-06-06] MEDS: MELATONIN 3 MG TABLET PO PRN (21:09)
[2021-06-07 07:10] LABS: Calcium 8.5 MG/DL (8.5-10.1); Osmolality,Calculated 286.4 MOS/KG (273-304); Potassium 3.6 MMOL/L (3.5-5.1)
[2021-06-07] MEDS: INSULIN REGULAR 100 UNIT/ML SUBCUT SCH ×4 (07:44→20:29)
[2021-06-07] MEDS ORDERED: carvediloL 12.5 MG TABLET PO ONE (09:30)
[2021-06-07] MEDS: CETIRIZINE 10 MG TABLET PO SCH (10:36)
[2021-06-07] MEDS: FAMOTIDINE 20 MG TABLET PO SCH ×2 (10:36→20:15)
[2021-06-07] MEDS: ZINC GLUCONATE 50 MG TABLET PO SCH (10:36)
[2021-06-07] MEDS: ENOXAPARIN 40 MG/0.4 ML SYRINGE SUBCUT SCH ×2 (10:36→20:15)
[2021-06-07] MEDS: ASCORBIC ACID 500 MG TABLET PO SCH ×2 (10:36→20:15)
[2021-06-07] MEDS: CHOLECALCIFEROL 1,000 UNIT TABLET PO SCH (10:37)
[2021-06-07] MEDS: FUROSEMIDE 40 MG TABLET PO SCH ×2 (10:37→20:15)
[2021-06-07] MEDS: ISOSORBIDE DINITRATE 20 MG TABLET PO SCH ×3 (10:37→20:15)
[2021-06-07] MEDS: cefTRIAXone 1,000 MG in SODIUM CHLORIDE 0.9% 100 ML IV SCH (10:37)
[2021-06-07] MEDS: AZITHROMYCIN 250 MG TABLET PO SCH (10:37)
[2021-06-07] MEDS: MOMETASONE 50 MCG NASAL SPRAY 17 GM BOTTLE BOTH NARES SCH ×2 (11:24→20:15)
[2021-06-07] MEDS: carvediloL 12.5 MG TABLET PO SCH ×2 (11:24→20:15)
[2021-06-07] MEDS: REMDESIVIR 100 MG in SODIUM CHLORIDE 0.9% 100 ML IV SCH (11:24)
[2021-06-07] MEDS: DEXAMETHASONE 4 MG/1 ML VIAL IV SCH (11:25)
[2021-06-07] MEDS: NIFEdipine 10 MG CAPSULE PO SCH ×2 (15:41→20:15)
[2021-06-07] MEDS: ACETAMINOPHEN 325 MG TABLET PO PRN (22:50)
[2021-06-07] MEDS: MELATONIN 3 MG TABLET PO PRN (22:50)
[2021-06-08] MEDS: INSULIN REGULAR 100 UNIT/ML SUBCUT SCH ×2 (08:44→14:24)
[2021-06-08] MEDS ORDERED: hydrALAZINE 20 MG/1 ML VIAL IM ONE (08:54)
[2021-06-08] MEDS ORDERED: DEXAMETHASONE 4 MG TABLET PO SCH (09:00)
[2021-06-08] MEDS: NIFEdipine 10 MG CAPSULE PO SCH (10:40)
[2021-06-08] MEDS: FAMOTIDINE 20 MG TABLET PO SCH (10:40)
[2021-06-08] MEDS: CHOLECALCIFEROL 1,000 UNIT TABLET PO SCH (10:40)
[2021-06-08] MEDS: FUROSEMIDE 40 MG TABLET PO SCH (10:40)
[2021-06-08] MEDS: REMDESIVIR 100 MG in SODIUM CHLORIDE 0.9% 100 ML IV SCH (10:40)
[2021-06-08] MEDS: CETIRIZINE 10 MG TABLET PO SCH (10:40)
[2021-06-08] MEDS: ZINC GLUCONATE 50 MG TABLET PO SCH (10:40)
[2021-06-08] MEDS: ASCORBIC ACID 500 MG TABLET PO SCH (10:40)
[2021-06-08] MEDS: AZITHROMYCIN 250 MG TABLET PO SCH (10:40)
[2021-06-08] MEDS: ENOXAPARIN 40 MG/0.4 ML SYRINGE SUBCUT SCH (10:40)
[2021-06-08] MEDS: carvediloL 12.5 MG TABLET PO SCH (10:42)
[2021-06-08] MEDS: ISOSORBIDE DINITRATE 20 MG TABLET PO SCH (10:45)
[2021-06-08] MEDS: ACETAMINOPHEN 325 MG TABLET PO PRN (10:52)
[2021-06-08] MEDS: cefTRIAXone 1,000 MG in SODIUM CHLORIDE 0.9% 100 ML IV SCH (11:50)
[2021-06-08 12:10] VITALS: BP 150/82
[2021-06-08] MEDS ORDERED: hydrALAZINE 20 MG/1 ML VIAL IV ONE (14:00)
[2021-06-08] MEDS: MOMETASONE 50 MCG NASAL SPRAY 17 GM BOTTLE BOTH NARES SCH (14:21)
[2021-06-08] MEDS ORDERED: CEFUROXIME 500 MG TABLET PO SCH (21:00)
== END 2021-06-08 13:15 | disposition home or self-care (01) | DRG 177 ==
LOC: N.ED 17:28 → N.EDINP 06-04 02:02 → SUATTDRO 06-04 02:02 → N.2E 06-04 18:56
PROVIDERS: ADMIT Internal Medicine; ATTEND Internal Medicine

== ENCOUNTER 2022-09-12 12:34 | Inpatient (IN) ==
[2022-09-12] MEDS ORDERED: DILTIAZEM 25 MG/5 ML VIAL IV STA (13:14)
[2022-09-12 13:27] LABS: Basophils % 0.2 % (0.0-0.8); Eosinophils # 0.1 10*3/uL (0.0-0.87); Eosinophils % 1.4 % (0.00-10.9); Hematocrit 41.8 VOL% (42.0-52.0); Hemoglobin 13.3 GM/DL (14.0-18.0); Immature Granulocytes % 0.3 %; Immature Granulocytes Absolute 0.03 #; Lymphocytes # 2.5 10*3/uL (1.4-4.0); Mean Corpuscular HGB Conc 31.8 GM/DL (32-36); Mean Corpuscular Volume 88.9 FL (87-102); Mean Platelet Volume 10.3 FL (9.6-12.0); Monocytes # 0.7 10*3/uL (0.11-0.8); Monocytes % 7.6 % (1.7-12.7); NRBC # 0.02 10*3/uL; Neutrophils % 63.5 % (38.7-73.9); Platelet Count 216 T/CUMM (130-400); Red Cell Distribution Width 15.1 % (9.3-17.3); White Blood Count 9.4 T/CUMM (4-12)
[2022-09-12] MEDS ORDERED: DILTIAZEM INJ 100 MG in SODIUM CHLORIDE 0.9% 100 ML IV SCH (13:30)
[2022-09-12 14:28] LABS: Albumin 2.9 G/DL (3.4-5.0); Bilirubin,Total 0.8 MG/DL (0.20-1.00); Calcium 8.6 MG/DL (8.5-10.1); Osmolality,Calculated 282.4 MOS/KG (273-304); Potassium 3.5 MMOL/L (3.5-5.1); Thyroid Stimulating Hormone 1.53 uIU/ml (0.358-3.74); Total Protein 7.1 G/DL (6.4-8.2)
[2022-09-12] MEDS ORDERED: GLUCAGON 1 MG VIAL IM PRN (14:42)
[2022-09-12] MEDS ORDERED: ALBUTEROL 2.5 MG/3 ML NEB RESP TX PRN (14:42)
[2022-09-12] MEDS ORDERED: DEXTROSE 10% 250 ML BAG IV PRN (14:42)
[2022-09-12] MEDS ORDERED: AMIODARONE INJ 150 MG in DEXTROSE 5% 100 ML IV ONE (14:46)
[2022-09-12] MEDS ORDERED: AMIODARONE INJ 450 MG in DEXTROSE 5% 241 ML IV SCH (15:00)
[2022-09-12 16:01] LABS: Barbiturates Screen,Urine Negative (Negative); Benzodiazepines Screen,Urine Negative (Negative); Cannabinoid Screen,Urine Negative (Negative); Opiate Screen,Urine Negative (Negative); Phencyclidine Screen,Urine Negative (Negative)
[2022-09-12] MEDS: FUROSEMIDE 40 MG TABLET PO SCH (16:03)
[2022-09-12] MEDS: carvediloL 25 MG TABLET PO SCH (16:04)
[2022-09-12] MEDS ORDERED: INFLUENZA VIRUS VACCINE 0.5 ML SYRINGE IM ONE (16:26)
[2022-09-12] MEDS: SACUBITRIL/VALSARTAN 49-51 MG TABLET PO SCH (22:31)
[2022-09-12] MEDS: APIXABAN 5 MG TABLET PO SCH (22:31)
[2022-09-12] MEDS: AMIODARONE INJ 450 MG in DEXTROSE 5% 241 ML IV SCH (22:31)
[2022-09-13] MEDS: AMIODARONE INJ 450 MG in DEXTROSE 5% 241 ML IV SCH ×2 (00:52→16:03)
[2022-09-13 05:44] LABS: Basophils % 0.2 % (0.0-0.8); Eosinophils # 0.2 10*3/uL (0.0-0.87); Hematocrit 40.7 VOL% (42.0-52.0); Hemoglobin 12.8 GM/DL (14.0-18.0); Immature Granulocytes % 0.1 %; Immature Granulocytes Absolute 0.01 #; Lymphocytes # 2.9 10*3/uL (1.4-4.0); Lymphocytes % 31.5 % (21.2-54.2); Mean Corpuscular HGB Conc 31.4 GM/DL (32-36); Mean Platelet Volume 10.5 FL (9.6-12.0); Monocytes # 0.7 10*3/uL (0.11-0.8); Monocytes % 7.5 % (1.7-12.7); Neutrophils % 58.7 % (38.7-73.9); Platelet Count 192 T/CUMM (130-400); Red Blood Count 4.52 MC/CUMM (3.8-5.5); Red Cell Distribution Width 15.2 % (9.3-17.3); White Blood Count 9.2 T/CUMM (4-12)
[2022-09-13 06:17] LABS: Albumin 2.7 G/DL (3.4-5.0); Bilirubin,Total 0.8 MG/DL (0.20-1.00); Calcium 8.6 MG/DL (8.5-10.1); Osmolality,Calculated 287.1 MOS/KG (273-304); Potassium 3.1 MMOL/L (3.5-5.1); Total Protein 6.5 G/DL (6.4-8.2)
[2022-09-13] MEDS: carvediloL 25 MG TABLET PO SCH ×2 (10:21→16:14)
[2022-09-13] MEDS: SACUBITRIL/VALSARTAN 49-51 MG TABLET PO SCH ×2 (10:21→22:54)
[2022-09-13] MEDS: DAPAGLIFLOZIN 10 MG TABLET PO SCH (10:21)
[2022-09-13] MEDS: FUROSEMIDE 40 MG/4 ML VIAL IV SCH ×2 (10:24→16:16)
[2022-09-13] MEDS: APIXABAN 5 MG TABLET PO SCH ×2 (10:25→22:55)
[2022-09-13] MEDS: FUROSEMIDE 40 MG TABLET PO SCH (10:45)
[2022-09-13] MEDS: DILTIAZEM CD 120 MG CAPSULE PO SCH ×2 (13:48→22:55)
[2022-09-13] MEDS ORDERED: DILTIAZEM CD 120 MG CAPSULE PO SCH (21:00)
[2022-09-13] MEDS: AMIODARONE 200 MG TABLET PO SCH (22:56)
[2022-09-14] MEDS: AMIODARONE INJ 450 MG in DEXTROSE 5% 241 ML IV SCH ×2 (03:30→19:11)
[2022-09-14 05:03] LABS: Basophils % 0.2 % (0.0-0.8); Eosinophils # 0.2 10*3/uL (0.0-0.87); Eosinophils % 2.5 % (0.00-10.9); Hematocrit 41.5 VOL% (42.0-52.0); Hemoglobin 13.3 GM/DL (14.0-18.0); Immature Granulocytes % 0.2 %; Immature Granulocytes Absolute 0.02 #; Lymphocytes # 2.3 10*3/uL (1.4-4.0); Lymphocytes % 26.1 % (21.2-54.2); Mean Corpuscular Volume 89.6 FL (87-102); Mean Platelet Volume 10.4 FL (9.6-12.0); Monocytes # 0.7 10*3/uL (0.11-0.8); Monocytes % 7.4 % (1.7-12.7); Neutrophils % 63.6 % (38.7-73.9); Platelet Count 190 T/CUMM (130-400); Red Blood Count 4.63 MC/CUMM (3.8-5.5); Red Cell Distribution Width 15.5 % (9.3-17.3); White Blood Count 8.9 T/CUMM (4-12)
[2022-09-14 05:31] LABS: Calcium 8.2 MG/DL (8.5-10.1); Osmolality,Calculated 285.3 MOS/KG (273-304); Potassium 3.3 MMOL/L (3.5-5.1)
[2022-09-14] MEDS: POTASSIUM CHLORIDE 20 MEQ TABLET PO PRN (06:26)
[2022-09-14] MEDS: DAPAGLIFLOZIN 10 MG TABLET PO SCH (08:41)
[2022-09-14] MEDS: carvediloL 25 MG TABLET PO SCH ×2 (08:42→16:22)
[2022-09-14] MEDS: SACUBITRIL/VALSARTAN 49-51 MG TABLET PO SCH ×2 (08:42→21:37)
[2022-09-14] MEDS: AMIODARONE 200 MG TABLET PO SCH ×2 (08:42→21:37)
[2022-09-14] MEDS: APIXABAN 5 MG TABLET PO SCH ×2 (08:42→21:37)
[2022-09-14] MEDS: DILTIAZEM CD 120 MG CAPSULE PO SCH ×2 (08:43→21:37)
[2022-09-14] MEDS: FUROSEMIDE 40 MG/4 ML VIAL IV SCH ×2 (08:47→16:24)
[2022-09-14] MEDS ORDERED: MEPERIDINE 50 MG/1 ML VIAL IV ONE (10:08)
[2022-09-14] MEDS ORDERED: PROMETHAZINE INJ 25 MG in SODIUM CHLORIDE 0.9% 50 ML IV ONE (10:09)
[2022-09-14] MEDS ORDERED: MIDAZOLAM 10 MG/2 ML VIAL IV ONE (10:11)
[2022-09-14] MEDS ORDERED: METOPROLOL TARTRATE 5 MG/5 ML VIAL IV ONE (11:00)
[2022-09-14] MEDS ORDERED: DEXTROSE 50% 25 GM/50 ML VIAL IV PRN (11:50)
[2022-09-14] MEDS ORDERED: GLUCAGON 1 MG VIAL IM PRN (11:50)
[2022-09-15 05:56] LABS: Basophils % 0.1 % (0.0-0.8); Eosinophils # 0.2 10*3/uL (0.0-0.87); Eosinophils % 1.6 % (0.00-10.9); Hematocrit 40.8 VOL% (42.0-52.0); Hemoglobin 13.1 GM/DL (14.0-18.0); Immature Granulocytes % 0.2 %; Immature Granulocytes Absolute 0.02 #; Lymphocytes # 1.6 10*3/uL (1.4-4.0); Lymphocytes % 17.2 % (21.2-54.2); Mean Corpuscular HGB Conc 32.1 GM/DL (32-36); Mean Corpuscular Volume 88.9 FL (87-102); Monocytes # 0.6 10*3/uL (0.11-0.8); Monocytes % 6.3 % (1.7-12.7); Neutrophils % 74.6 % (38.7-73.9); Platelet Count 186 T/CUMM (130-400); Red Blood Count 4.59 MC/CUMM (3.8-5.5); Red Cell Distribution Width 15.4 % (9.3-17.3); White Blood Count 9.1 T/CUMM (4-12)
[2022-09-15 06:28] LABS: Calcium 8.5 MG/DL (8.5-10.1); Osmolality,Calculated 281.5 MOS/KG (273-304); Potassium 3.3 MMOL/L (3.5-5.1)
[2022-09-15 08:03] VITALS: BP 146/92
[2022-09-15] MEDS: DAPAGLIFLOZIN 10 MG TABLET PO SCH (08:51)
[2022-09-15] MEDS: SACUBITRIL/VALSARTAN 49-51 MG TABLET PO SCH (08:52)
[2022-09-15] MEDS: carvediloL 25 MG TABLET PO SCH (08:52)
[2022-09-15] MEDS: APIXABAN 5 MG TABLET PO SCH (08:52)
[2022-09-15] MEDS: POTASSIUM CHLORIDE 20 MEQ TABLET PO PRN (08:52)
[2022-09-15] MEDS: FUROSEMIDE 40 MG/4 ML VIAL IV SCH (08:53)
[2022-09-15] MEDS ORDERED: amLODIPine 5 MG TABLET PO SCH (09:00)
[2022-09-15] MEDS ORDERED: AMIODARONE 200 MG TABLET PO SCH (09:00)
== END 2022-09-15 11:47 | disposition home or self-care (01) | DRG 308 ==
LOC: N.ED 12:34 → N.EDINP 12:34 → N.TELES 15:42
PROVIDERS: ADMIT Internal Medicine Cardiovascular Disease; ATTEND Internal Medicine Cardiovascular Disease